=== PATIENT | male | born 1995 | race Hispanic/Latino ===

== ENCOUNTER 2016-06-18 21:49 | Emergency (ER) | payer SELFPAY ==
[~2016-06-18] VITALS: Ht 165.1 cm; Wt 54.3 kg
--- NOTE | 2016-06-18 21:55 | NUR ---
Pt presents to ER ambulatory with c/o puncture wound from nail to right heel. No other concerns presented. Pt cleaned wound before coming to ER and covered with a bandage. Wound is clean and well approximated with no visible sign of a foreign body.
[2016-06-18] MEDS ORDERED: TETANUS & DIPHTHERIA TOXOIDS (Td) 0.5 ML (DECAVAC) VIAL IM ONE (22:20)
[2016-06-18] MEDS ORDERED: TETANUS, DIPTHERIA, PERTUSSIS (ADACELL) VACCINE 0.5 ML VIAL IM ONE ×2 (22:21→22:25)
--- NOTE | 2016-06-18 22:35 | NUR ---
Pt dismissed to home with instructions. Pt stated his understanding. No other concerns or questions. Pt left ambulatory to POV.
[2016-06-18 22:40] VITALS: BP 116/71
== END 2016-06-18 22:35 | disposition home or self-care (01) ==
LOC: ED 21:52
DX: S90.811A Abrasion, right foot, initial encounter (principal); W22.8XXA Striking against or struck by other objects, initial encounter; Y93.9 Activity, unspecified; Y92.009 Unspecified place in unspecified non-institutional (private) residence as the place of occurrence of the external cause
CPT/HCPCS: 10160; 90471; 90715; 99282; 99283